=== PATIENT | male | born 1960 | race African-American/Black ===

== ENCOUNTER 2024-02-06 19:31 | Emergency (ER) | payer OTHER ==
[~2024-02-06] VITALS: Ht 182.9 cm; Wt 75.0 kg
[2024-02-06] MEDS: IBUPROFEN 600 MG TABLET PO ONE (20:45)
[2024-02-06] MEDS ORDERED: IBUP-1492 PO (22:27)
[2024-02-06 22:47] VITALS: BP 143/97; PULSE 88; RESP 14; TEMP 98.8; O2SAT 98
== END 2024-02-06 22:52 | disposition home or self-care (01) ==
LOC: EMS 19:32
DX: S40.011A Contusion of right shoulder, initial encounter (principal); W01.0XXA Fall on same level from slipping, tripping and stumbling without subsequent striking against object, initial encounter; Y93.89 Activity, other specified; Y92.89 Other specified places as the place of occurrence of the external cause; Y99.8 Other external cause status
CPT/HCPCS: 29105; 99283

== ENCOUNTER 2024-04-21 13:49 | Emergency (ER) | payer OTHER ==
[~2024-04-21] VITALS: Ht 180.3 cm; Wt 78.0 kg
[~2024-04-21 13:49] MED LIST: IBUP-1492 PO
[2024-04-21 14:05] VITALS: BP 146/99; PULSE 90; RESP 20; TEMP 98.9; O2SAT 98
[2024-04-21 14:17] LABS: COVID AG,FIA SOURCE NASAL SWAB
[2024-04-21 14:26] LABS: BASOPHILS % (AUTO) 0.2 % (0.0-2.0); EOSINOPHILS % (AUTO) 0.1 % (1.0-6.0); HEMATOCRIT 52.6 % (41-53); HEMOGLOBIN 17.6 g/dL (13.5-17.5); LYMPHOCYTES # (AUTO) 0.3 K/uL (1.0-4.8); LYMPHOCYTES % (AUTO) 4.2 % (22.0-44.0); MEAN CORPUSCULAR HGB CONC 33.4 G/dL (31.0-37.0); MEAN CORPUSCULAR VOLUME 90 fL (80-100); MONOCYTES # (AUTO) 0.3 K/uL (0.1-1.0); NEUTROPHILS # (AUTO) 7.1 K/uL (1.8-7.7); PLATELET COUNT (AUTO) 302 K/uL (150-450); RED BLOOD CELL COUNT(AUTO) 5.86 MIL/uL (4.50-5.90); RED CELL DISTRIBUTION WIDTH 13.3 % (11.5-14.5); WHITE BLOOD COUNT (AUTO) 7.7 K/uL (4.5-11.0)
[2024-04-21 14:27] LABS: NEUTROPHILS % (AUTO) 91.5 % (40.0-70.0)
[2024-04-21 14:34] LABS: ANION GAP 13 mmol/L (8-16); CALCIUM, TOTAL 9.7 mg/dL (8.8-10.5); CARBON DIOXIDE 27 mmol/L (22-29); CHLORIDE 98 mmol/L (98-107); CREATININE 0.91 mg/dL (0.60-1.30); GLOMERULAR FILTR. RATE CALC > 60 mL/min (>60); GLUCOSE,RANDOM 105 mg/dL (70-110); POTASSIUM 3.8 mmol/L (3.5-5.1); SODIUM SERUM 138 mmol/L (136-145); UREA NITROGEN, BLOOD 15 mg/dL (7-18)
[2024-04-21 14:35] LABS: LIPASE 25 U/L (16-77)
[2024-04-21 14:37] LABS: INFLUENZA TYPE A NEGATIVE FOR TYPE A (NEGATIVE); SARS-COV2 (COVID) ANTIGEN,FIA Negative (Negative)
[2024-04-21 14:39] LABS: INFLUENZA TYPE B POSITIVE FOR TYPE B (NEGATIVE)
[2024-04-21] MEDS: DIPHENOXYLATE/ATROP 2.5-0.025 MG TABLET PO ONE (16:59)
[2024-04-21] MEDS: ACETAMINOPHEN 500 MG TABLET PO ONE (17:00)
[2024-04-21] MEDS: ONDANSETRON HCL 4 MG/2 ML VIAL IM ONE (17:01)
[2024-04-21] MEDS: KETOROLAC TROMETHAMINE 60 MG/2 ML VIAL IM ONE (17:01)
[2024-04-21] MEDS ORDERED: ONDA-104 PO (17:28)
[2024-04-21] MEDS ORDERED: GUAIFDM PO (17:28)
[2024-04-21] MEDS ORDERED: ACET-2080 PO (17:28)
[2024-04-21] MEDS ORDERED: IBUP-1554 PO (17:28)
[2024-04-21] MEDS ORDERED: DIPH-1130 PO (17:28)
== END 2024-04-21 17:45 | disposition home or self-care (01) ==
LOC: EMS 13:50
DX: J10.1 Influenza due to other identified influenza virus with other respiratory manifestations (principal); K52.9 Noninfective gastroenteritis and colitis, unspecified; R94.31 Abnormal electrocardiogram [ECG] [EKG]; Z20.822 Contact with and (suspected) exposure to COVID-19
CPT/HCPCS: 99284; 87426; 80048; 83690; 85025; 87804; 36415; 93005; 96372; J1885; J2405